=== PATIENT | female | born 1980 | race Caucasian/White ===

== ENCOUNTER 2017-02-04 10:21 | Day surgery (SDC) | payer BC ==
[~2017-02-04 10:21] MED LIST: IBUPROFEN800 MG PO; KEFLEX500 M4 PO; NORCO 5/3251 TA1 PO; PRENATAL VITAM1 EA12 PO
[2017-02-04 11:35] LABS: HCT-HEMATOCRIT 39.5 % (34.0-49.0); HGB-HEMOGLOBIN 13.5 gm/dl (12.0-15.5); MCV (MEAN CELL VOLUME) 84.6 fl (82.0-96.0)
== END 2017-02-04 15:30 ==
LOC: SHSC 10:21 → ORW 12:10 → SHSC 13:35
PROVIDERS: Anesthesiology
PROC: 0JB70ZZ Excision of Back Subcutaneous Tissue and Fascia, Open Approach (ICD-10-PCS; principal; 2017-02-04)
DX: L72.0 Epidermal cyst (principal); L02.212 Cutaneous abscess of back [any part, except buttock and flank]; E66.01 Morbid (severe) obesity due to excess calories; Z68.35 Body mass index [BMI] 35.0-35.9, adult; Z79.2 Long term (current) use of antibiotics; Z79.899 Other long term (current) drug therapy; Z98.890 Other specified postprocedural states
CPT/HCPCS: J0690